=== PATIENT | female | born 1935 | race Caucasian/White ===

== ENCOUNTER 2019-06-06 17:22 | Emergency (ER) | payer OTHER, MEDICAID ==
[~2019-06-06] VITALS: Ht 152.4 cm; Wt 68.0 kg
[2019-06-06 17:32] VITALS: BP_SYST 130
[2019-06-06 18:23] LABS: BASOPHILS % (AUTO) 0.5 % (0.0-2.0); EOSINOPHILS # (AUTO) 0.5 K/uL (0.0-0.4); EOSINOPHILS % (AUTO) 8.4 % (0.0-4.0); HEMOGLOBIN 13.8 g/dL (12.0-16.0); LYMPHOCYTES % (AUTO) 17.3 % (20.5-51.5); MEAN CORPUSCULAR HEMOGLOBIN 28 pg (27-31); MEAN CORPUSCULAR HGB CONC 33 % (32-36); MEAN CORPUSCULAR VOLUME 86 fL (79.0-98.0); MONOCYTES # (AUTO) 0.7 K/uL (0.0-1.0); MONOCYTES % (AUTO) 11.6 % (1.7-9.3); NEUTROPHILS # (AUTO) 3.8 K/uL (1.8-7.7); NEUTROPHILS % (AUTO) 62.2 % (40.0-70.0); PLATELET COUNT (AUTO) 242 K/uL (130-430); RED BLOOD CELL COUNT(AUTO) 4.88 MIL/uL (4.2-6.2); WHITE BLOOD COUNT (AUTO) 6.1 K/uL (4.8-10.8)
[2019-06-06 18:46] LABS: ANION GAP 9 (5-15); CALCIUM 9.4 mg/dL (8.4-11.0); CHLORIDE 100 mmol/L (98-107); CREATININE 0.91 mg/dL (0.55-1.30); GLUCOSE 100 mg/dL (70-99); POTASSIUM 4.1 mmol/L (3.5-5.1); SODIUM SERUM 135 mmol/L (136-145); UREA NITROGEN, BLOOD 10 mg/dL (8-21)
[2019-06-06 18:52] LABS: ALANINE AMINOTRANSFERASE 23 U/L (12-78); ALBUMIN 3.8 g/dL (3.4-4.8); ASPARTATE AMINOTRANSFERASE 24 U/L (10-37); TOTAL BILIRUBIN 0.4 mg/dL (0.0-1.0)
[2019-06-06 18:55] LABS: ACETAMINOPHEN < 1 ug/mL (1-30); ALCOHOL, BLOOD < 3 mg/dL (<10)
[2019-06-06 19:30] VITALS: BP_SYST 122
[2019-06-06 19:34] LABS: CHOLESTEROL 152 mg/dL (<200); HDL CHOLESTEROL 49 mg/dL (>55); LDL CHOLESTEROL 82 mg/dL (<100); TRIGLYCERIDES 97 mg/dL (30-150)
== END 2019-06-06 19:29 ==
LOC: SED 17:22
DX: Z13.89 Encounter for screening for other disorder (principal); I10 Essential (primary) hypertension
CPT/HCPCS: 36415; 80053; 80061; 83036; 85025; 87081; 99285; G0480; G0481; G0482

== ENCOUNTER 2019-11-20 23:07 | Inpatient (IN) | payer OTHER, MEDICAID, SELFPAY ==
[~2019-11-20] VITALS: Ht 160 cm; Wt 66.7 kg
[2019-11-20 23:07] VITALS: BP_SYST 114
[2019-11-21] MEDS ORDERED: ACET-2165 PO (00:01)
[2019-11-21] MEDS ORDERED: ALLO100T91 PO (00:01)
[2019-11-21] MEDS ORDERED: AMLO5TAB4 PO (00:01)
[2019-11-21] MEDS ORDERED: NACL 0.9% 1,000 ML IV ONE (00:12)
[2019-11-21] MEDS ORDERED: GABA-529 PO (00:36)
[2019-11-21] MEDS ORDERED: DOCU-144 PO (00:36)
[2019-11-21] MEDS ORDERED: MULT-1100 PO (00:36)
[2019-11-21] MEDS ORDERED: CHOL200078 PO (00:36)
[2019-11-21] MEDS ORDERED: ESCI5TAB PO (00:36)
[2019-11-21] MEDS ORDERED: PRO40 PO (00:36)
[2019-11-21] MEDS ORDERED: LEVO50TA8 PO (00:36)
[2019-11-21] MEDS ORDERED: CYAN100010 PO (00:36)
[2019-11-21] MEDS ORDERED: PHEN-622 PO (00:36)
[2019-11-21] MEDS ORDERED: FERR-69 PO (00:36)
[2019-11-21] MEDS ORDERED: NITSL SL (00:36)
[2019-11-21] MEDS ORDERED: CLOP75TA32 PO (00:36)
[2019-11-21] MEDS ORDERED: MOM PO (00:36)
[2019-11-21] MEDS ORDERED: MEGE400O4 PO (00:36)
[2019-11-21] MEDS ORDERED: MEMA10TA PO (00:36)
[2019-11-21] MEDS ORDERED: DONE10TA44 PO (00:36)
[2019-11-21 00:54] LABS: BILIRUBIN,URINE 1+ (NEGATIVE); BLOOD, URINE 3+ (NEGATIVE); CLARITY/URINE CLOUDY (CLEAR); COLOR,URINE ORANGE (YELLOW); GLUCOSE,URINE TRACE (NEGATIVE); KETONES,URINE TRACE (NEGATIVE); LEUKOCYTE ESTERASE ,URINE 3+ (NEGATIVE); NITRITE, URINE POSITIVE (NEGATIVE); PROTEIN URINE 3+ (NEGATIVE)
[2019-11-21 00:54] LABS: BASOPHILS % (AUTO) 0.5 % (0.0-2.0); EOSINOPHILS # (AUTO) 0.2 K/uL (0.0-0.4); EOSINOPHILS % (AUTO) 4.6 % (0.0-4.0); HEMATOCRIT 31.8 % (36-48); HEMOGLOBIN 10.3 g/dL (12.0-16.0); LYMPHOCYTES # (AUTO) 1.1 K/uL (1.0-5.5); LYMPHOCYTES % (AUTO) 26.8 % (20.5-51.5); MEAN CORPUSCULAR HEMOGLOBIN 28 pg (27-31); MEAN CORPUSCULAR HGB CONC 33 % (32-36); MEAN CORPUSCULAR VOLUME 85 fL (79.0-98.0); MONOCYTES # (AUTO) 0.5 K/uL (0.0-1.0); MONOCYTES % (AUTO) 12.6 % (1.7-9.3); NEUTROPHILS # (AUTO) 2.4 K/uL (1.8-7.7); NEUTROPHILS % (AUTO) 55.5 % (40.0-70.0); PLATELET COUNT (AUTO) 287 K/uL (130-430); RED BLOOD CELL COUNT(AUTO) 3.75 MIL/uL (4.2-6.2); RED CELL DISTRIBUTION WIDTH 15.5 % (9.0-15.0); WHITE BLOOD COUNT (AUTO) 4.3 K/uL (4.8-10.8)
[2019-11-21 00:59] LABS: ANION GAP 6 (5-15); CALCIUM 8.8 mg/dL (8.4-11.0); CHLORIDE 102 mmol/L (98-107); CREATININE 1.07 mg/dL (0.55-1.30); GLUCOSE 97 mg/dL (70-99); POTASSIUM 3.9 mmol/L (3.5-5.1); SODIUM SERUM 135 mmol/L (136-145); UREA NITROGEN, BLOOD 16 mg/dL (8-21)
[2019-11-21 01:00] LABS: BACTERIA,URINE MANY /HPF (None Seen); RBC,URINE >100 /HPF (0-3); WBC,URINE >100 /HPF (0-3)
[2019-11-21 01:05] LABS: ALANINE AMINOTRANSFERASE 19 U/L (12-78); ALBUMIN 3.3 g/dL (3.4-4.8); ASPARTATE AMINOTRANSFERASE 18 U/L (10-37); TOTAL BILIRUBIN 0.1 mg/dL (0.0-1.0)
[2019-11-21] MEDS ORDERED: cefTRIAXone 1 GM IVPB PREMIX 50 ML IV ONE (01:30)
[2019-11-21] MEDS: NACL 0.9% 1,000 ML IV SCH ×3 (02:54→23:11)
[2019-11-21] MEDS ORDERED: cefTRIAXone 1 GM IVPB PREMIX 50 ML IV SCH (03:00)
[2019-11-21 04:47] LABS: BASOPHILS # (AUTO) 0.1 K/uL (0.0-0.2); BASOPHILS % (AUTO) 1.4 % (0.0-2.0); EOSINOPHILS # (AUTO) 0.3 K/uL (0.0-0.4); EOSINOPHILS % (AUTO) 5.5 % (0.0-4.0); HEMATOCRIT 28.8 % (36-48); HEMOGLOBIN 9.4 g/dL (12.0-16.0); LYMPHOCYTES # (AUTO) 1.2 K/uL (1.0-5.5); LYMPHOCYTES % (AUTO) 24.2 % (20.5-51.5); MEAN CORPUSCULAR HEMOGLOBIN 28 pg (27-31); MEAN CORPUSCULAR HGB CONC 33 % (32-36); MEAN CORPUSCULAR VOLUME 84 fL (79.0-98.0); MONOCYTES # (AUTO) 0.5 K/uL (0.0-1.0); MONOCYTES % (AUTO) 11.3 % (1.7-9.3); NEUTROPHILS # (AUTO) 2.8 K/uL (1.8-7.7); NEUTROPHILS % (AUTO) 57.6 % (40.0-70.0); PLATELET COUNT (AUTO) 268 K/uL (130-430); RED BLOOD CELL COUNT(AUTO) 3.42 MIL/uL (4.2-6.2); RED CELL DISTRIBUTION WIDTH 15.6 % (9.0-15.0); WHITE BLOOD COUNT (AUTO) 4.8 K/uL (4.8-10.8)
[2019-11-21 05:03] LABS: ANION GAP 2 (5-15); CALCIUM 8.6 mg/dL (8.4-11.0); CHLORIDE 107 mmol/L (98-107); GLUCOSE 103 mg/dL (70-99); POTASSIUM 4.1 mmol/L (3.5-5.1); SODIUM SERUM 135 mmol/L (136-145); UREA NITROGEN, BLOOD 15 mg/dL (8-21)
[2019-11-21 08:00] VITALS: BP_SYST 136
[2019-11-21 12:06] VITALS: BP_SYST 114
[2019-11-21 16:13] VITALS: BP_SYST 118
[2019-11-21] MEDS ORDERED: PANTOPRAZOLE SODIUM 40 MG/VIAL (PROTONIX) IVP ONE (19:30)
[2019-11-21 20:00] VITALS: BP_SYST 116
[2019-11-21] MEDS: DIPHENHYDRAMINE INJ 50 MG/ML VIAL IVP PRN (22:17)
[2019-11-21] MEDS: LORazepam 2 MG/ML VIAL IVP PRN (23:11)
[2019-11-21] MEDS: cefTRIAXone 1 GM IVPB PREMIX 50 ML IV SCH (23:12)
[2019-11-22] VITALS: BP_SYST 112
[2019-11-22] MEDS ORDERED: SIMETHICONE 40 MG/0.6 ML ML ONE (06:14)
[2019-11-22 06:30] LABS: BASOPHILS % (AUTO) 0.4 % (0.0-2.0); EOSINOPHILS # (AUTO) 0.2 K/uL (0.0-0.4); EOSINOPHILS % (AUTO) 4.6 % (0.0-4.0); HEMATOCRIT 29.7 % (36-48); HEMOGLOBIN 9.7 g/dL (12.0-16.0); LYMPHOCYTES # (AUTO) 0.9 K/uL (1.0-5.5); LYMPHOCYTES % (AUTO) 17.4 % (20.5-51.5); MEAN CORPUSCULAR HEMOGLOBIN 28 pg (27-31); MEAN CORPUSCULAR HGB CONC 33 % (32-36); MEAN CORPUSCULAR VOLUME 85 fL (79.0-98.0); MONOCYTES # (AUTO) 0.7 K/uL (0.0-1.0); MONOCYTES % (AUTO) 13.5 % (1.7-9.3); NEUTROPHILS # (AUTO) 3.2 K/uL (1.8-7.7); NEUTROPHILS % (AUTO) 64.1 % (40.0-70.0); PLATELET COUNT (AUTO) 273 K/uL (130-430); RED BLOOD CELL COUNT(AUTO) 3.51 MIL/uL (4.2-6.2); RED CELL DISTRIBUTION WIDTH 15.2 % (9.0-15.0)
[2019-11-22 07:36] LABS: PROTHROMBIN TIME 9.9 SECS (9.5-12.5)
[2019-11-22 08:00] VITALS: BP_SYST 118
[2019-11-22] MEDS: PANTOPRAZOLE SODIUM 40 MG/VIAL (PROTONIX) IVP SCH ×2 (09:33→20:28)
[2019-11-22 13:22] VITALS: BP_SYST 124
[2019-11-22] MEDS: NACL 0.9% 1,000 ML IV SCH (17:02)
[2019-11-22] MEDS: LORazepam 2 MG/ML VIAL IVP PRN (17:04)
[2019-11-22 17:15] VITALS: BP_SYST 132
[2019-11-22 20:00] VITALS: BP_SYST 136
[2019-11-22] MEDS: cefTRIAXone 1 GM IVPB PREMIX 50 ML IV SCH (20:28)
[2019-11-23 01:13] VITALS: BP_SYST 154
[2019-11-23 08:00] VITALS: BP_SYST 152
[2019-11-23] MEDS: MEMANTINE HCL 5 MG TABLET PO SCH (09:00)
[2019-11-23] MEDS: PANTOPRAZOLE SODIUM 40 MG/VIAL (PROTONIX) IVP SCH ×2 (09:00→22:28)
[2019-11-23] MEDS: LORazepam 2 MG/ML VIAL IVP PRN ×2 (09:03→18:55)
[2019-11-23 12:00] VITALS: BP_SYST 130
[2019-11-23 16:22] LABS: BASOPHILS # (AUTO) 0.1 K/uL (0.0-0.2); BASOPHILS % (AUTO) 1.5 % (0.0-2.0); EOSINOPHILS # (AUTO) 0.3 K/uL (0.0-0.4); EOSINOPHILS % (AUTO) 4.7 % (0.0-4.0); HEMATOCRIT 30.9 % (36-48); HEMOGLOBIN 10.1 g/dL (12.0-16.0); LYMPHOCYTES # (AUTO) 0.6 K/uL (1.0-5.5); LYMPHOCYTES % (AUTO) 11.5 % (20.5-51.5); MEAN CORPUSCULAR HEMOGLOBIN 27 pg (27-31); MEAN CORPUSCULAR HGB CONC 33 % (32-36); MEAN CORPUSCULAR VOLUME 84 fL (79.0-98.0); MONOCYTES # (AUTO) 0.4 K/uL (0.0-1.0); MONOCYTES % (AUTO) 7.8 % (1.7-9.3); NEUTROPHILS # (AUTO) 4.1 K/uL (1.8-7.7); NEUTROPHILS % (AUTO) 74.5 % (40.0-70.0); PLATELET COUNT (AUTO) 280 K/uL (130-430); RED BLOOD CELL COUNT(AUTO) 3.69 MIL/uL (4.2-6.2); RED CELL DISTRIBUTION WIDTH 15.5 % (9.0-15.0); WHITE BLOOD COUNT (AUTO) 5.6 K/uL (4.8-10.8)
[2019-11-23 16:23] VITALS: BP_SYST 131
[2019-11-23] MEDS ORDERED: BISACODYL 5 MG TABLET.DR (DULCOLAX) PO ONE (17:00)
[2019-11-23] MEDS ORDERED: GOLYTELY / COLYTE SOLUTION 4 LITERS PO ONE (18:00)
[2019-11-23 20:00] VITALS: BP_SYST 128
[2019-11-23] MEDS: MUPIROCIN 2% TOPICAL OINTMENT 22 GM NS SCH (21:00)
[2019-11-23] MEDS: cefTRIAXone 1 GM IVPB PREMIX 50 ML IV SCH (22:28)
[2019-11-23] MEDS: NACL 0.9% 1,000 ML IV SCH (22:32)
[2019-11-24 00:25] VITALS: BP_SYST 128
[2019-11-24 07:00] LABS: PROTHROMBIN TIME 10.3 SECS (9.5-12.5)
[2019-11-24] MEDS ORDERED: SIMETHICONE 40 MG/0.6 ML ML ONE (07:08)
[2019-11-24] MEDS ORDERED: fentaNYL CITRATE/PF 100 MCG/2 ML AMP ONE (07:08)
[2019-11-24] MEDS ORDERED: MIDAZOLAM HCL 5 MG/5 ML VIAL ONE (07:08)
[2019-11-24] MEDS: fentaNYL CITRATE/PF 100 MCG/2 ML AMP ONE ×2 (07:58→08:02)
[2019-11-24] MEDS: MIDAZOLAM HCL 5 MG/5 ML VIAL ONE ×3 (08:02→08:58)
[2019-11-24] MEDS: PANTOPRAZOLE SODIUM 40 MG/VIAL (PROTONIX) IVP SCH ×2 (09:32→21:02)
[2019-11-24] MEDS: MUPIROCIN 2% TOPICAL OINTMENT 22 GM NS SCH ×2 (09:34→21:03)
[2019-11-24 12:00] VITALS: BP_SYST 110; BP_SYST 125
[2019-11-24] MEDS: MEMANTINE HCL 5 MG TABLET PO SCH (12:50)
[2019-11-24] MEDS: DIPHENHYDRAMINE INJ 50 MG/ML VIAL IVP PRN (13:00)
[2019-11-24 15:56] VITALS: BP_SYST 125
[2019-11-24 19:45] VITALS: BP_SYST 125
[2019-11-24] MEDS: cefTRIAXone 1 GM IVPB PREMIX 50 ML IV SCH (21:03)
[2019-11-24] MEDS: NACL 0.9% 1,000 ML IV SCH (21:04)
[2019-11-24] MEDS ORDERED: ACETAMINOPHEN 325 MG TABLET PO PRN (21:30)
[2019-11-25 00:15] VITALS: BP_SYST 162
[2019-11-25] MEDS: DIPHENHYDRAMINE INJ 50 MG/ML VIAL IVP PRN (02:04)
[2019-11-25 07:40] LABS: BASOPHILS % (AUTO) 0.4 % (0.0-2.0); EOSINOPHILS # (AUTO) 0.2 K/uL (0.0-0.4); EOSINOPHILS % (AUTO) 4.7 % (0.0-4.0); HEMATOCRIT 27.6 % (36-48); LYMPHOCYTES # (AUTO) 0.5 K/uL (1.0-5.5); LYMPHOCYTES % (AUTO) 15.5 % (20.5-51.5); MEAN CORPUSCULAR HEMOGLOBIN 28 pg (27-31); MEAN CORPUSCULAR HGB CONC 33 % (32-36); MEAN CORPUSCULAR VOLUME 84 fL (79.0-98.0); MONOCYTES # (AUTO) 0.5 K/uL (0.0-1.0); MONOCYTES % (AUTO) 15.7 % (1.7-9.3); NEUTROPHILS # (AUTO) 2.2 K/uL (1.8-7.7); NEUTROPHILS % (AUTO) 63.7 % (40.0-70.0); PLATELET COUNT (AUTO) 233 K/uL (130-430); RED BLOOD CELL COUNT(AUTO) 3.28 MIL/uL (4.2-6.2); RED CELL DISTRIBUTION WIDTH 15.1 % (9.0-15.0); WHITE BLOOD COUNT (AUTO) 3.5 K/uL (4.8-10.8)
[2019-11-25 07:48] LABS: ANION GAP 8 (5-15); CALCIUM 8.3 mg/dL (8.4-11.0); CHLORIDE 106 mmol/L (98-107); CREATININE 0.85 mg/dL (0.55-1.30); GLUCOSE 87 mg/dL (70-99); POTASSIUM 3.4 mmol/L (3.5-5.1); SODIUM SERUM 138 mmol/L (136-145); UREA NITROGEN, BLOOD 7 mg/dL (8-21)
[2019-11-25 08:00] VITALS: BP_SYST 113
[2019-11-25] MEDS: PANTOPRAZOLE SODIUM 40 MG/VIAL (PROTONIX) IVP SCH ×2 (10:27→21:51)
[2019-11-25] MEDS: MEMANTINE HCL 5 MG TABLET PO SCH ×2 (10:27→12:07)
[2019-11-25] MEDS: MUPIROCIN 2% TOPICAL OINTMENT 22 GM NS SCH ×2 (10:28→21:51)
[2019-11-25 11:28] VITALS: BP_SYST 116
[2019-11-25 15:33] VITALS: BP_SYST 136
[2019-11-25 20:30] VITALS: BP_SYST 139
[2019-11-25] MEDS: cefTRIAXone 1 GM IVPB PREMIX 50 ML IV SCH (21:49)
[2019-11-25] MEDS: NACL 0.9% 1,000 ML IV SCH (21:50)
[2019-11-25] MEDS: LORazepam 2 MG/ML VIAL IVP PRN (22:20)
[2019-11-26 00:36] VITALS: BP_SYST 134
[2019-11-26] MEDS: NACL 0.9% 1,000 ML IV SCH (02:28)
[2019-11-26 06:19] LABS: BASOPHILS % (AUTO) 0.4 % (0.0-2.0); EOSINOPHILS # (AUTO) 0.2 K/uL (0.0-0.4); EOSINOPHILS % (AUTO) 4.8 % (0.0-4.0); HEMATOCRIT 27.8 % (36-48); HEMOGLOBIN 9.3 g/dL (12.0-16.0); LYMPHOCYTES # (AUTO) 0.7 K/uL (1.0-5.5); LYMPHOCYTES % (AUTO) 19.2 % (20.5-51.5); MEAN CORPUSCULAR HEMOGLOBIN 28 pg (27-31); MEAN CORPUSCULAR HGB CONC 33 % (32-36); MEAN CORPUSCULAR VOLUME 83 fL (79.0-98.0); MONOCYTES # (AUTO) 0.6 K/uL (0.0-1.0); MONOCYTES % (AUTO) 16.7 % (1.7-9.3); NEUTROPHILS # (AUTO) 2.2 K/uL (1.8-7.7); NEUTROPHILS % (AUTO) 58.9 % (40.0-70.0); PLATELET COUNT (AUTO) 255 K/uL (130-430); RED BLOOD CELL COUNT(AUTO) 3.37 MIL/uL (4.2-6.2); RED CELL DISTRIBUTION WIDTH 14.8 % (9.0-15.0); WHITE BLOOD COUNT (AUTO) 3.7 K/uL (4.8-10.8)
[2019-11-26 08:00] VITALS: BP_SYST 138
[2019-11-26] MEDS: MUPIROCIN 2% TOPICAL OINTMENT 22 GM NS SCH (09:00)
[2019-11-26] MEDS: PANTOPRAZOLE SODIUM 40 MG/VIAL (PROTONIX) IVP SCH (09:00)
== END 2019-11-26 14:24 | DRG 689 ==
LOC: SED 23:07 → STU 11-21 01:53 → SMU 11-25 22:10
PROVIDERS: ADMIT Internal Medicine; ATTEND Internal Medicine
PROC: 0DJ08ZZ Inspection of Upper Intestinal Tract, Via Natural or Artificial Opening Endoscopic (ICD-10-PCS; principal; 2019-11-22 07:30)
PROC: 0W3P8ZZ Control Bleeding in Gastrointestinal Tract, Via Natural or Artificial Opening Endoscopic (ICD-10-PCS; 2019-11-24)
DX: N39.0 Urinary tract infection, site not specified (principal); K55.21 Angiodysplasia of colon with hemorrhage; K64.4 Residual hemorrhoidal skin tags; K21.9 Gastro-esophageal reflux disease without esophagitis; D64.9 Anemia, unspecified; I95.9 Hypotension, unspecified; K44.9 Diaphragmatic hernia without obstruction or gangrene; E03.9 Hypothyroidism, unspecified; I10 Essential (primary) hypertension; F03.90 Unspecified dementia, unspecified severity, without behavioral disturbance, psychotic disturbance, mood disturbance, and anxiety; E78.5 Hyperlipidemia, unspecified; F41.9 Anxiety disorder, unspecified; F32.9 Major depressive disorder, single episode, unspecified; I25.10 Atherosclerotic heart disease of native coronary artery without angina pectoris; K25.9 Gastric ulcer, unspecified as acute or chronic, without hemorrhage or perforation; M10.9 Gout, unspecified; K62.1 Rectal polyp; K29.70 Gastritis, unspecified, without bleeding; K29.80 Duodenitis without bleeding; K57.30 Diverticulosis of large intestine without perforation or abscess without bleeding; K63.5 Polyp of colon; Z79.02 Long term (current) use of antithrombotics/antiplatelets; Z79.899 Other long term (current) drug therapy; Z03.818 Encounter for observation for suspected exposure to other biological agents ruled out
CPT/HCPCS: 36415; 43235; 45382; 80048; 80053; 81000-TC; 82272; 82962; 83605; 85025; 85610-TC; 85730-TC; 87040-TC; 87081; 87086; 87186-TC; 93005; C9113; G0378; J0696; J1200; J2060; J2250; J3010; J7030; U0003-CS